=== PATIENT | male | born 1945 | race Caucasian/White ===

== ENCOUNTER 2016-06-15 10:43 | Inpatient (IN) ==
--- NOTE | 2016-06-15 11:39 | Emergency Department Note ---
Disposition Clinical Impression: CVA (cerebral vascular accident) Qualifiers: CVA mechanism: thrombosis Precerebral and cerebral artery: unspecified cerebral artery Qualified Code(s): I63.30 - Cerebral infarction due to thrombosis of unspecified cerebral artery Disposition: Admitted As Inpatient Condition: Serious Time of Disposition: 14:01 Extremity Problem HPI - General Chief complaint: ED Extremity Problem,Nontraumatic Stated complaint: L Arm Weakness Time Seen by Provider: 06/15/16 11:02 Source: patient, family Limitations: no limitations Nursing Notes Reviewed: Yes Vital Signs Reviewed: Yes - History of Present Illness HPI Narrative: Mr. Stevens is a 70 year old male that presents with L hand weakness that began yesterday afternoon. He states he first noticed the weakness while trying to write. Denies any pain, numbness, tingling. 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 Denies any issues with balance, speech. Notes more difficulty with fine motor movements such as writing and brushing his teeth. Denies any history of injury or overuse in L arm. Pertinent history of prostate cancer, bladder cancer, and colon cancer x 2; with colon resection 3 weeks ago. Noted to complete 14 day course of Lovenox two days ago. Pain Scale: 0 - Related Data Home Medications Medication Instructions Recorded Confirmed Atenolol [Tenormin] 25 mg PO DAILY 07/10/15 06/15/16 Esomeprazole Magnesium [Nexium] 40 mg PO Q48H 07/10/15 06/15/16 Oxybutynin Chloride [Ditropan Xl] 10 mg PO Q48H 07/10/15 06/15/16 Allergies Allergy/AdvReac Type Severity Reaction Status Date / Time Sulfa (Sulfonamide AdvReac Rash Verified 06/15/16 10:44 Antibiotics) All systems ED: reviewed and negative except as stated. Constitutional: Denies: fever Eyes: Denies: vision change ENT ED: Denies: hearing loss Cardiovascular: Denies: chest pain Respiratory: Denies: dyspnea Gastrointestinal: Denies: abdominal pain, melena, hematochezia Musculoskeletal: Denies: back pain, neck pain Neurological: Reports: weakness. Denies: numbness, paresthesias, confusion, abnormal gait Endocrine: Denies: fatigue Hematological/Lymphatic: Denies: easy bleeding, easy bruising Past Medical History - Past Medical History Attestation: Yes The following information was validated with the patient. Source: patient, obtained from family Medical history: Reports: cancer, diabetes, hypertension, osteoporosis, other Surgical history: Reports: other Psychiatric history: Reports: no psych history - Social History Smoking Status: Never smoker Smokeless Tobacco Status: No Alcohol use: Reports: none Drug use: Reports: none Physical Exam - General Limitations: no limitations General appearance: alert, in no apparent distress - Head Head exam: atraumatic, normocephalic - Eye Eye exam: Present: normal appearance, PERRL, EOMI. Absent: scleral icterus, conjunctival injection, nystagmus, miosis - ENT ENT exam: normal exam, mucous membranes moist - Neck Neck exam: Present: normal inspection, full ROM, trachea midline. Absent: tenderness, lymphadenopathy - Chest Chest inspection: Present: normal inspection, symmetric chest wall rise. Absent : tenderness - Respiratory Respiratory exam: Present: normal lung sounds bilaterally. Absent: respiratory distress, wheezes - Cardiovascular Cardiovascular exam: Present: regular rate, normal rhythm, +S1, +S2 - Abdominal Exam Abdominal exam: Present: soft, Non-Tender. Absent: distention, guarding, rebound, rigidity - Extremities Exam Extremities exam: Present: normal inspection, full ROM. Absent: tenderness, pedal edema - Expanded Upper Extremity Exam Hand exam: Present: normal inspection, other (LUE: symptoms not worsened with tapping of median or ulnar nerve. 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 Balance intact, normal gait, no pronator drift, no facial droop. finger to nose appropriate bilaterally. Patinet appears to be focuc on L hand while doing task, more concentration.). Absent: tenderness, swelling Neuromotor exam: Normal: wrist extension, thumb opposition, thumb IP flexion, thumb adduction, fingers 2-5 abduction Vascular exam: Normal: capillary refill, radial pulse - Neurological Exam Neurological exam: Present: alert, oriented X3, CN II-XII intact, normal gait, other (gross sensation of upper and lower extremity equal bilaterally.) - Psychiatric Psychiatric exam: Present: normal affect, normal mood - Skin Skin exam: Present: warm, dry, intact, normal color. Absent: rash, erythema, pallor Course - Consultations Consultation #1: Spoke to Dr. Pagan, admitting hospitalist, who accepted patient. Time: 14:50 Vital Signs Temperature 97.9 F 06/15/16 10:44 Pulse Rate 59 06/15/16 10:44 Respiratory Rate 16 06/15/16 10:44 Blood Pressure 181/89 06/15/16 10:44 O2 Sat by Pulse Oximetry 98 06/15/16 10:44 Temperature 98.0 F 06/15/16 20:08 Pulse Rate 67 06/15/16 20:30 Respiratory Rate 16 06/15/16 20:30 Blood Pressure 157/80 06/15/16 20:30 O2 Sat by Pulse Oximetry 93 06/15/16 20:08 Oxygen Delivery Oxygen Delivery Room Air Extremity Problem, Nontraumati - MDM Narrative Medical decision making narrative: No signes of peripheral nerve entrapment. Concern for central source of ataxia based on patient's history and exam. Will get an Brain MRI and concern consult to neurology. CVA diagnosed from MRI scan, discussed results with patient and recommendation for admission for further workup. Patient states agreement to admission at this time. - Lab Data Lab results reviewed: Yes I reviewed the patient's lab results. Result diagrams: 06/15/16 11:48 06/15/16 11:48 Lab Results 06/15/16 06/15/16 06/15/16 Range/Units 11:48 11:48 11:48 WBC 10.0 (4.3-11.1) K/mcL RBC 4.69 (4.19-5.50) M/mcL Hgb 13.3 (12.9-16.9) g/dL Hct 39.6 (37.5-50.1) % MCV 84.4 (83.0-100.0) fL MCH 28.4 (28.0-33.3) pg MCHC 33.6 (31.6-35.5) g/dL RDW 14.4 (11.5-14.5) % Plt Count 226 (140-400) K/mcL MPV 10.2 (9.4-12.4) fL Immature Gran % 0.4 (0-4) % Seg Neutrophils % 79.0 % Lymphocytes % 11.9 % Monocytes % 6.5 % Eosinophils % 1.8 % Basophils % 0.4 % Neutrophils # 7.9 (1.6-8.9) K/mcL Lymphocytes # 1.2 (0.6-4.6) K/mcL Monocytes # 0.7 (0.0-1.3) K/mcL Eosinophils # 0.2 (0.0-0.6) K/mcL Basophils # 0.0 (0.0-0.2) K/mcL Immature Plt Fraction 5.1 (1.1-6.1) % ESR 33 H (0-10) mm/hr Sodium 138 (136-145) mEq/L Potassium 4.2 (3.5-4.5) mEq/L Chloride 104 (98-109) mEq/L Carbon Dioxide 25 (19-29) mEq/L BUN 12 (8-26) mg/dL Creatinine 1.29 H (0.72-1.25) mg/dL Est GFR ( Amer) > 60 (> 60) Est GFR (Non-Af Amer) 55 L (> 60) BUN/Creatinine Ratio 9 (6-26) Glucose 173 H (70-99) mg/dL POC Glucose (58-89) Calculated Osmolality 290 (280-300) Calcium 9.4 (8.6-10.8) mg/dL 06/15/16 Range/Units 16:33 WBC (4.3-11.1) K/mcL RBC (4.19-5.50) M/mcL Hgb (12.9-16.9) g/dL Hct (37.5-50.1) % MCV (83.0-100.0) fL MCH (28.0-33.3) pg MCHC (31.6-35.5) g/dL RDW (11.5-14.5) % Plt Count (140-400) K/mcL MPV (9.4-12.4) fL Immature Gran % (0-4) % Seg Neutrophils % % Lymphocytes % % Monocytes % % Eosinophils % % Basophils % % Neutrophils # (1.6-8.9) K/mcL Lymphocytes # (0.6-4.6) K/mcL Monocytes # (0.0-1.3) K/mcL Eosinophils # (0.0-0.6) K/mcL Basophils # (0.0-0.2) K/mcL Immature Plt Fraction (1.1-6.1) % ESR (0-10) mm/hr Sodium (136-145) mEq/L Potassium (3.5-4.5) mEq/L Chloride (98-109) mEq/L Carbon Dioxide (19-29) mEq/L BUN (8-26) mg/dL Creatinine (0.72-1.25) mg/dL Est GFR ( Amer) (> 60) Est GFR (Non-Af Amer) (> 60) BUN/Creatinine Ratio (6-26) Glucose (70-99) mg/dL POC Glucose 117 H (58-89) Calculated Osmolality (280-300) Calcium (8.6-10.8) mg/dL - Radiology Data Radiology results reviewed: Yes I reviewed the patient's radiology results. Brain MRI 06/15/16 11:35 IMPRESSION: 1. There is a 6.7 mm acute infarct involving the posterior limb of the right internal capsule/periventricular white matter. 2. Cerebral atrophy. Chronic small vessel ischemic changes. D/ / 06/15/2016 13:44:25 Tammie Alejandre MD / Keisha Piña Interpreting Provider: Tammie Alejandre MD - EKG Data EKG attestation: Yes I reviewed and interpreted this EKG. EKG shows normal: sinus rhythm Rate: normal Rhythm: PVC's When compared to previous EKG there are: no significant changes Interpretation: no acute changes Attestation Statement - Attestation Attestation: I examined this patient and my medical decision-making was reviewed with the LAB SUPPORT TECHNICIAN/PA/Advanced Practice Nurse/Resident Physician. I agree with the documented findings, disposition and treatment plan as described except to the extent set forth below. Into the emergency department complaining of left arm weakness. He states it started yesterday. Denies any numbness or tingling in the arm. He does admit to riding with his elbow up on the edge of the windowsill in his car. 3. Recent admission for partial bowel resection. On examination he is awake and alert in no distress. There is no swelling or deformity to the arm. He has full range of motion of it. 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 No pain with tapping over the ulnar or median nerves. Some ataxia in that arm with finger-nose testing and alternating rapid movements. Plan. Basic labs EKG and MRI brain. MRI shows a small acute infarct off the internal capsule. Likely the cause of his symptoms. Patient will be admitted for stroke workup. Patient's contemplated contemplating transfer at this time. Agreeable to admission here. Except by hospitalist. No TPA secondary to onset of symptoms almost 24 hours ago. 30 minutes of critical care exclusive of separately billable procedures. NIH Stroke Scale - Level of Consciousness LOC: Alert - LOC Questions LOC Questions: Answers both correctly - LOC Commands LOC Commands: Performs both correctly - Best Gaze Best Gaze: Normal - Visual Visual: No visual loss - Facial Palsy Facial Palsy: Normal - Motor Arms Motor Arm-Left: No drift for 10 seconds Motor Arm-Right: No drift for 10 seconds - Motor Legs Motor Leg-Left: No drift for 5 seconds Motor Leg-Right: No drift for 5 seconds - Limb Ataxia Limb Ataxia: Present in ONE limb - Sensory Sensory: Normal - Best Language Best Language: No aphasia - Dysarthria Dysarthria: Normal - Extinction and Inattention Extinction and Inattention: Normal - NIHSS Total Score NIHSS Total Score: 1
[2016-06-15 11:54] LABS: Basophils % 0.4 %; Eosinophils # 0.2 K/mcL (0.0-0.6); Eosinophils % 1.8 %; Hematocrit 39.6 % (37.5-50.1); Hemoglobin 13.3 g/dL (12.9-16.9); Immature Granulocytes % 0.4 % (0-4); Immature Platelets 5.1 % (1.1-6.1); Lymphocytes # 1.2 K/mcL (0.6-4.6); Lymphocytes % 11.9 %; Mean Corpuscular HGB Conc 33.6 g/dL (31.6-35.5); Mean Corpuscular Hemoglobin 28.4 pg (28.0-33.3); Mean Corpuscular Volume 84.4 fL (83.0-100.0); Mean Platelet Volume 10.2 fL (9.4-12.4); Monocytes # 0.7 K/mcL (0.0-1.3); Monocytes % 6.5 %; Neutrophils # 7.9 K/mcL (1.6-8.9); Platelet Count 226 K/mcL (140-400); Red Blood Count 4.69 M/mcL (4.19-5.50); Red Cell Distribution Width 14.4 % (11.5-14.5)
[2016-06-15 12:05] LABS: BUN/Creatinine Ratio 9 (6-26); Blood Urea Nitrogen 12 mg/dL (8-26); Calcium 9.4 mg/dL (8.6-10.8); Carbon Dioxide 25 mEq/L (19-29); Chloride 104 mEq/L (98-109); Glucose 173 mg/dL (70-99); Osmolality,Calculated 290 (280-300); Potassium 4.2 mEq/L (3.5-4.5); Sodium 138 mEq/L (136-145); eGFR For African Americans > 60 (> 60); eGFR For Non-African Americans 55 (> 60)
[2016-06-15] MEDS ORDERED: Aspirin 81 MG TAB.CHEW PO STA (13:53)
[2016-06-15] MEDS ORDERED: Naloxone 0.4 MG/ML INJ IVP PRN (17:11)
[2016-06-15] MEDS ORDERED: Dextrose Gel 15 GM PO PRN ×2 (17:59)
[2016-06-15] MEDS ORDERED: *HR* Dextrose 50 % in Water (Syg) 50 ML SYRINGE IVP PRN (17:59)
[2016-06-15] MEDS ORDERED: D5% in Water 1,000 ML IVC PRN (17:59)
--- NOTE | 2016-06-15 18:05 | Internal Med History&Physical ---
<Fransisco Hart T - Last Filed: 06/15/16 18:46> Date of Encounter: 06/15/16 Internal Medicine - H&P: HPI History of present illness: Mr. Stevens is a 70 year old male Internal Medicine - H&P: Meds Atenolol [Tenormin] 25 mg PO DAILY 07/10/15 [History] Esomeprazole Magnesium [Nexium] 40 mg PO Q48H 07/10/15 [History] Oxybutynin Chloride [Ditropan Xl] 10 mg PO Q48H 07/10/15 [History] Allergies Sulfa (Sulfonamide Antibiotics) Adverse Reaction (Verified 06/15/16 10:44) Rash All Systems PM: A 10-system review of systems was performed and is negative for pertinent findings except as documented above in the HPI. - Constitutional Vitals: Temp Pulse Resp BP Pulse Ox 98.4 F 62 20 170/88 96 06/15/16 15:16 06/15/16 15:16 06/15/16 15:16 06/15/16 15:16 06/15/16 15:16 Internal Med - H&P Results - Labs CBC & Chem 7: 06/15/16 11:48 06/15/16 11:48 - Attending Attestation I have independently interviewed and examined this patient. I have reviewed the EMR extensively and discussed plan of care the resident/nurse practitioner. 70 Y/O M with PMH of HTN, DM-diet controlled, GERD, History of Multiple cancers including Colon cancer, bladder , colon CA with recent bowel resection , developed sudden difficulty writing with his left hand last night(he is left handed), he denies any other symptoms Physical exam unremarkable for neurologic deficits except subtle weakness of his left small muscles of the hand and fine rapidly resolving nystagmus. Labs and Imaging reviewed and noted for R acute thalamic CVA, EKG with PVCs, TAB with CR of 1.38, most recent creatinine on record here is 0.99. Assessment and Plan: Acute Ischemic CVA, minimal residual weakness of his left fingers, no other gross deficit, patient with multiple risk factors, Check ECHO, carotid Doppler , Continue ASA, Lipitor, check A1C, lipid panel, PT/OT consult, TAB vs progression of CKD, gentle hydration, check renal USS, check UA. Chronic medical problems are stable. 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 Brain MRI showed a 6.7mm acute infarct in the posterior limb of the right internal capsule/periventricular white matter. EKG showed SR with PVCs. Aspirin 325mg given. Aspirin daily Atorvastatin daily Lipid panel with morning labs Continuous media monitor Echocardiogram Carotid dopplers Consult to Neurology Consult to PT/OT Qualifiers: CVA mechanism: thrombosis Precerebral and cerebral artery: unspecified cerebral artery Qualified Code(s): I63.30 - Cerebral infarction due to thrombosis of unspecified cerebral artery (2) Type 2 diabetes mellitus Current visit: Yes Status: Acute Patient reports he is diet controlled Hgb A1c diabetic diet check blood sugars ACHS sliding scale correction dose ACHS hypoglycemic protocol Qualifiers: Diabetes mellitus complication status: without complication Diabetes mellitus 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 Will hydrate overnight, check UA and recheck chemistry in the morning. (4) Hypertension Current visit: Yes Status: Acute Continue home dose of amlodipine. Qualifiers: Hypertension type: essential hypertension Qualified Code(s): I10 - Essential (primary) hypertension (5) DVT prophylaxis Current visit: Yes Status: Acute encourage ambulation anti-embolic stockings Lovenox 40mg SQ daily Internal Medicine - H&P: HPI Chief complaint: left hand weakness Admitted From: Emergency Dept Plans for Post Hospital Care: Home History of present illness: Mr. Stevens is a 70 year old male with hypertension, diet-controlled diabetes, acid reflux, history of colon cancer, bladder cancer and prostate cancer, presented to the emergency department today with complaints of left hand weakness which started yesterday afternoon. Patient reports he notices that his fingers do not have the dexterity or control that he previously had an first noted it when he was writing. Thought it would go away but when he woke this morning and continued. He denies any numbness or tingling, lightheadedness , dizziness, disturbed gait, he denies any chest pain, palpitations, shortness of breath. Evaluation in the emergency department included an MRI of his brain which showed a 6.7 mm acute infarct in the posterior limb of the right internal capsule periventricular white matter, as well as cerebral atrophy and chronic small vessel ischemic changes. His EKG showed sinus rhythm with PVCs. Labs revealed acute kidney injury with creatinine of 1.29. Hyperglycemia with glucose of 173. ESR was elevated as well to 33. Patient reports 3 weeks ago he had a bowel resection for colon cancer, which was stage I and no further treatment planned. He completed postsurgical Lovenox treatment on . On exam, patient is alert and oriented, in no acute distress. He has equal strength bilaterally, cranial nerves are intact, no pronator drift. He does have horizontal nystagmus. Lungs are clear to auscultation, heart has regular rate and rhythm. Past Med Surg Social Fam HX - Past Medical History Medical history: cancer, diabetes, hypertension, osteoporosis, other Psychiatric history: no psych history - Past Surgical History Surgical History: other - Social History Smoking Status: Never smoker Smokeless Tobacco Status: No Alcohol use: none Drug use: none - Family History Mother Living Status: Age at : 79 Hx Family Cancer: Yes Hx Family Endocrine Disorder: Yes (diabetes) Father Living Status: Still Living Hx Family GI Disorders: Yes All Systems PM: A 10-system review of systems was performed and is negative for pertinent findings except as documented above in the HPI. - Constitutional Constitutional: no chills, no fever(s), no night sweats - EENT Eyes: no change in vision, no discharge, no pain, no photophobia Ears: no ear discharge, no ear pain, no tinnitus Nose, mouth and throat: no dysphagia, no nasal discharge, no neck pain, no sore throat - Cardiovascular Cardiovascular ROS IM: no chest pain, no diaphoresis, no dyspnea, no lightheadedness, no palpitations, no syncope - Respiratory Respiratory: no cough, no dyspnea, no wheezing, no excessive phlegm production - Gastrointestinal Gastrointestinal: no abdominal pain, no diarrhea, no hematemesis, no hematochezia, no melena, no nausea, no vomiting - Musculoskeletal Musculoskeletal ROS IM: no numbness, no tingling - Integumentary Integumentary IM: no rash, no unusual bruising - Neurological Neurological ROS: focal weakness (left hand/fingers), no confusion, no convulsions, no numbness, no tingling, no tremor(s) - Hematologic/Lymphatic Hematologic/Lymphatic: no easy bruising - Constitutional Vitals: Temp Pulse Resp BP Pulse Ox 98.4 F 62 20 170/88 96 06/15/16 15:16 06/15/16 15:16 06/15/16 15:16 06/15/16 15:16 06/15/16 15:16 General appearance: Present: A&O X 3, pleasant, no acute distress - Head Head exam: Present: atraumatic, normocephalic - Eye Eye exam: Present: nystagmus, PERRL, conjuntiva pink, sclera anicteric Pupils: Present: PERRL - Neck Neck exam general surgery: Present: supple, trachea midline. Absent: lymphadenopathy - Respiratory Respiratory exam: Present: CTAB. Absent: accessory muscle use, rales, rhonchi, wheezes - Cardiovascular Cardiovascular exam: Present: RRR, +S1, +S2. Absent: diastolic murmur, gallop, rubs, systolic murmur - GI/Abdominal GI/Abdominal exam: Present: normal bowel sounds, soft, no peritoneal signs. Absent: distended, tenderness - Extremities Exam Extremities exam: Present: warm, radial pulses palpable and symetrical. Absent : calf tenderness, cyanotic, pedal edema - Neurological Exam Neurological exam: Present: CN II-XII intact, oriented X3, no focal deficits. Absent: pronater drift, facial droop, speech deficit - Expanded Neurological Exam Cranial Nerves: EOM's intact PM: Normal, nystagmus PM: Abnormal Left, tongue deviation PM: Normal Cerebellar function: finger to nose: Abnormal Left Sensory exam: LE 2 point discrimination: Normal, UE 2 point discrimination: Normal Neuro motor strength exam: LUE: 5, RUE: 5, LLE: 5, RLE: 5 - Skin Skin exam: Present: dry, intact Internal Med - H&P Results - Labs CBC & Chem 7: 06/15/16 11:48 06/15/16 11:48 Labs: All Lab Results (24 Hours) 06/15/16 06/15/16 06/15/16 Range/Units 11:48 11:48 11:48 WBC 10.0 (4.3-11.1) K/mcL RBC 4.69 (4.19-5.50) M/mcL Hgb 13.3 (12.9-16.9) g/dL Hct 39.6 (37.5-50.1) % MCV 84.4 (83.0-100.0) fL MCH 28.4 (28.0-33.3) pg MCHC 33.6 (31.6-35.5) g/dL RDW 14.4 (11.5-14.5) % Plt Count 226 (140-400) K/mcL MPV 10.2 (9.4-12.4) fL Immature Gran % 0.4 (0-4) % Seg Neutrophils % 79.0 % Lymphocytes % 11.9 % Monocytes % 6.5 % Eosinophils % 1.8 % Basophils % 0.4 % Neutrophils # 7.9 (1.6-8.9) K/mcL Lymphocytes # 1.2 (0.6-4.6) K/mcL Monocytes # 0.7 (0.0-1.3) K/mcL Eosinophils # 0.2 (0.0-0.6) K/mcL Basophils # 0.0 (0.0-0.2) K/mcL Immature Plt Fraction 5.1 (1.1-6.1) % ESR 33 H (0-10) mm/hr Sodium 138 (136-145) mEq/L Potassium 4.2 (3.5-4.5) mEq/L Chloride 104 (98-109) mEq/L Carbon Dioxide 25 (19-29) mEq/L BUN 12 (8-26) mg/dL Creatinine 1.29 H (0.72-1.25) mg/dL Est GFR ( Amer) > 60 (> 60) Est GFR (Non-Af Amer) 55 L (> 60) BUN/Creatinine Ratio 9 (6-26) Glucose 173 H (70-99) mg/dL POC Glucose (58-89) Calculated Osmolality 290 (280-300) Calcium 9.4 (8.6-10.8) mg/dL 06/15/16 Range/Units 16:33 WBC (4.3-11.1) K/mcL RBC (4.19-5.50) M/mcL Hgb (12.9-16.9) g/dL Hct (37.5-50.1) % MCV (83.0-100.0) fL MCH (28.0-33.3) pg MCHC (31.6-35.5) g/dL RDW (11.5-14.5) % Plt Count (140-400) K/mcL MPV (9.4-12.4) fL Immature Gran % (0-4) % Seg Neutrophils % % Lymphocytes % % Monocytes % % Eosinophils % % Basophils % % Neutrophils # (1.6-8.9) K/mcL Lymphocytes # (0.6-4.6) K/mcL Monocytes # (0.0-1.3) K/mcL Eosinophils # (0.0-0.6) K/mcL Basophils # (0.0-0.2) K/mcL Immature Plt Fraction (1.1-6.1) % ESR (0-10) mm/hr Sodium (136-145) mEq/L Potassium (3.5-4.5) mEq/L Chloride (98-109) mEq/L Carbon Dioxide (19-29) mEq/L BUN (8-26) mg/dL Creatinine (0.72-1.25) mg/dL Est GFR ( Amer) (> 60) Est GFR (Non-Af Amer) (> 60) BUN/Creatinine Ratio (6-26) Glucose (70-99) mg/dL POC Glucose 117 H (58-89) Calculated Osmolality (280-300) Calcium (8.6-10.8) mg/dL - Diagnostic Studies MRI - head Additional comments: Brain MRI 06/15/16 11:35 IMPRESSION: 1. There is a 6.7 mm acute infarct involving the posterior limb of the right internal capsule/periventricular white matter. 2. Cerebral atrophy. Chronic small vessel ischemic changes. D/ /15/2016 13:44:25 Tammie Alejandre MD / Keisha Piña Interpreting Provider: Tammie Alejandre MD
[2016-06-15] MEDS: 0.9 % Sodium Chloride 1,000 ML IVC SCH (20:45)
[2016-06-15] MEDS ORDERED: Insulin LISPRO 300 UNITS/3 ML VIAL SQ SCH (21:00)
[2016-06-16] MEDS: 0.9 % Sodium Chloride 1,000 ML IVC SCH (06:36)
[2016-06-16] MEDS ORDERED: *HR* Enoxaparin 40 MG/0.4 ML SYRINGE SQ SCH (07:00)
[2016-06-16] MEDS: Insulin LISPRO 300 UNITS/3 ML VIAL SQ SCH ×3 (08:36→17:53)
[2016-06-16] MEDS ORDERED: Aspirin 81 MG TAB.CHEW PO SCH (09:00)
[2016-06-16] MEDS ORDERED: Aspirin 325 MG TABLET PO SCH (09:00)
[2016-06-16 09:46] LABS: Basophils # 0.1 K/mcL (0.0-0.2); Basophils % 0.7 %; Eosinophils # 0.3 K/mcL (0.0-0.6); Eosinophils % 4.2 %; Hematocrit 40.3 % (37.5-50.1); Hemoglobin 13.7 g/dL (12.9-16.9); Immature Granulocytes % 0.4 % (0-4); Lymphocytes % 27.5 %; Mean Corpuscular Hemoglobin 28.6 pg (28.0-33.3); Mean Corpuscular Volume 84.1 fL (83.0-100.0); Mean Platelet Volume 11.2 fL (9.4-12.4); Monocytes # 0.7 K/mcL (0.0-1.3); Neutrophils # 4.3 K/mcL (1.6-8.9); Platelet Count 190 K/mcL (140-400); Red Blood Count 4.79 M/mcL (4.19-5.50); Red Cell Distribution Width 14.6 % (11.5-14.5); Segmented Neutrophils % 58.2 %
[2016-06-16 10:03] LABS: BUN/Creatinine Ratio 10 (6-26); Blood Urea Nitrogen 11 mg/dL (8-26); Carbon Dioxide 21 mEq/L (19-29); Chloride 106 mEq/L (98-109); Glucose 136 mg/dL (70-99); Osmolality,Calculated 287 (280-300); Sodium 138 mEq/L (136-145); Triglycerides 77 mg/dL (< 150); eGFR For African Americans > 60 (> 60); eGFR For Non-African Americans > 60 (> 60)
[2016-06-16 10:04] LABS: Chol/HDL Ratio 3.3 (0-4.9); Cholesterol 136 mg/dL (< 200); HDL Cholesterol 41 mg/dL (40-59); LDL Cholesterol,Calculated 80 mg/dL (0-99)
[2016-06-16 12:44] LABS: Bilirubin,Urine Negative (Negative); Blood,Urine Negative (Negative); Clarity,Urine Clear (Clear); Color,Urine Yellow (Yellow); Glucose,Urine (UA) Normal (Normal); Ketones,Urine Negative (Negative); Leukocyte Esterase,Urine Negative (Negative); Nitrite,Urine Negative (Negative); PH,Urine 6.5 pH Units (5.0-8.0); Protein,Urine Trace mg/dL (Neg-Trace); Specific Gravity,Urine 1.014 (1.010-1.025); Urobilinogen,Urine Normal (Normal)
[2016-06-16 12:47] LABS: Bacteria,Urine None Seen per hpf (None-Few); Hyaline Casts,Urine None Seen per lpf (None-Few); RBC,Urine 0-3 per hpf (0-3); Squamous Epithelial Cell,Urine Moderate per lpf (None-Few); WBC,Urine 0-3 per hpf (0-3)
--- NOTE | 2016-06-16 13:52 | Neurology - Consult Note ---
Date of Encounter: 06/16/16 Time of Encounter: 13:50 Assessment and Plan (1) CVA (cerebral vascular accident) Current Visit: Yes Status: Acute This patient has sustained what is more than likely a lacunar infarction involving the posterior limb of the right internal capsule. Certainly he has risk factors including hypertension, his blood pressure was 181/89 the time of admission, as well as diabetes mellitus which is not well controlled. He did receive an aspirin at the time of admission. Certainly recommend maintaining him on statins, management of his stroke risk factors include normalizing his blood pressure, and aggressive management of his glycemic profile. I do not feel that he needs PT or OT at this time. I would however like to get an MRI scan of the brain with contrast and also rule out possibility of any brain metastases. He may be discharged if the MRI scan is negative for this. He should maintain aspirin 325 mg daily. Carotid Doppler revealed nonstenotic plaquing as mentioned earlier. Based on the location of the infarct embolic phenomenon is not likely. The documentation in the history of HPI and plan were at least partially created by [email or web address] voice recognition technology by Dr. Robison. Errors in grammar, wording or other phrases may exist. If errors are found after the documentation signed, they will be addressed individually in the addendum section of this document when appropriate. Qualifiers: CVA mechanism: thrombosis Precerebral and cerebral artery: unspecified cerebral artery Qualified Code(s): I63.30 - Cerebral infarction due to thrombosis of unspecified cerebral artery History of Present Illness HPI: Mr. Stevens is a 70 year old male seen for neurologic evaluation secondary to acute right lacunar infarct. Apparently in the day of admission he presented with difficulty writing as he is left handed. He denied any other symptoms at the time. Denied headache denied any speech difficulties denied any numbness tingling or weakness of the left face arms or legs. However upon admission he did have a blood pressure 181/89, and his glucose is elevated at 173. Since admission he has had carotid duplex Doppler study which revealed nonstenotic plaquing. MRI scan of the brain revealed an acute internal capsule infarct in the posterior limb of the right internal capsule. This gentleman does have a history of previous colon cancer and bladder cancer. There is also history of prostate cancer. There is a question as to whether or not he could maybe have metastatic lesions to the brain. Past Med Surg Social Fam HX - Past Medical History Medical history: cancer, diabetes, hypertension, osteoporosis, other Psychiatric history: no psych history - Past Surgical History Surgical History: other - Social History Smoking Status: Never smoker Smokeless Tobacco Status: No Alcohol use: none Drug use: none - Family History Mother Living Status: Age at : 79 Hx Family Cancer: Yes Hx Family Endocrine Disorder: Yes (diabetes) Father Living Status: Still Living Hx Family GI Disorders: Yes Medications and Allergies Atenolol [Tenormin] 25 mg PO DAILY 07/10/15 [History] Esomeprazole Magnesium [Nexium] 40 mg PO Q48H 07/10/15 [History] Oxybutynin Chloride [Ditropan Xl] 10 mg PO Q48H 07/10/15 [History] Allergies Sulfa (Sulfonamide Antibiotics) Adverse Reaction (Verified 06/15/16 10:44) Rash All Systems: A 10-system review of systems was performed and is negative for pertinent findings except as documented above in the HPI. Review of Systems: A 10 point review of systems is consistent with the history of present illness and is otherwise negative. Physical Examination - Vital Signs Vital Signs: Initial Vital Signs Temp Pulse Resp BP Pulse Ox 97.9 F 59 16 181/89 98 06/15/16 10:44 06/15/16 10:44 06/15/16 10:44 06/15/16 10:44 06/15/16 10:44 - Neurologic Motor examination - right side: 5/5: deltoids, biceps, triceps, wrist flexion, wrist extension, clinical product specialist, hip flexors, tibialis Anterior, quadriceps, toe extension (EHL), plantarflexion Motor examination - left side: 4/5: triceps, clinical product specialist, 5/5: deltoids, biceps, quadriceps, tibialis Anterior, toe extension (EHL), plantarflexion Detailed sensory examination: intact Reflex and gait examination: intact Reflexes: Biceps: 1+, Triceps: 1+, Brachioradialis: 1+, Patella: 1+, Achilles: 0 Mental Status Examination: awake, alert, oriented to person, oriented to place, oriented to time, follows commands appropriately, answers questions appropriately, no agnosia, no aphasia, no aproxia Cranial nerve examination: PERRL, EOMI, visual montoya intact, corneal reflexes brisk symmetrically, sensory to face intact, mastication intact, no facial asymmetry is present, no dysarthria, hearing is intact symmetrically, soft palate elevates bilaterally upon phonation, gag reflex intact, flexes SCM and trapezius muscles symmetrically with full power, tongue protrudes midline, no atrophy or facial fasiculations present Cerebellar examination: no dysmetria, performs finger to nose and heel to gillette symmetrically without ataxia, no gait ataxia, no truncal ataxia, no difficulty with rapid alternating movements Results - Laboratory Findings CBC and BMP: 06/16/16 08:13 06/16/16 08:13 Abnormal lab findings: Abnormal lab results RDW 14.6 % (11.5-14.5) H 06/16/16 08:13 ESR 33 mm/hr (0-10) H 06/15/16 11:48 Glucose 136 mg/dL (70-99) H 06/16/16 08:13 POC Glucose 117 (58-89) H 06/15/16 20:15 Hemoglobin A1c 7.0 % (-5.6) H 06/15/16 18:30 Ur Squamous Epith Cells Moderate per lpf (None-Few) H 06/16/16 11:45 Consult Discharge Plan - Plan Referrals: Kervin James Jr, MD [Primary Care Provider] -
--- NOTE | 2016-06-16 17:23 | ECHO - Doppler Report ---
Echo with Saline Contrast Name: Reza Stevens Date of Study: 06/16/2016 Date: 1945 Ht: 70.0 in Medical Record#: [id number] Age: 70 Wt: 210.0 lb Gender: Male BSA: 2.13 Order #: [id number] Location: [facility] Room #: 2NE28 Reading Physician: Joe Clark DO, BRITTANY, GUILLERMINA SMITH Security Infrastructure Engineer: Lula Ramos RDCS Ordering Physician: Henna Mccormick DO Primary Physician: Kervin James MD Indications: Cerebrovascular Accident Impressions: LVEF 65%. Normal LV chamber size and function. Mild concentric left ventricular hypertrophy. Moderate left ventricular diastolic dysfunction. Normal right ventricular structure and function. No significant valvular dysfunction. Mild pulmonary hypertension. No evidence of PFO with agitated saline contrast. Left Ventricular Wall Motion: Rest Echo Findings All wall segments showed normal motion. Findings: Study Quality * Technically adequate exam. ECG Findings * Normal sinus rhythm. Left Ventricle * LVEF 65%. * Normal LV chamber size and function. * Mild concentric left ventricular hypertrophy. * Moderate left ventricular diastolic dysfunction. Right Ventricle * Normal right ventricular structure and function. Left Atrium * Mild to moderately dilated left atrium. Right Atrium * Mildly dilated right atrium. Interatrial Septum * No evidence of PFO with agitated saline contrast. Aortic Valve * Trileaflet aortic valve with normal function. * No aortic regurgitation. * No aortic stenosis. Mitral Valve * Normal mitral valve structure and function. * No mitral stenosis. * No mitral regurgitation. Tricuspid Valve * Normal tricuspid valve structure and function. * Trace tricuspid regurgitation. * Mild pulmonary hypertension. Pulmonic Valve * Normal pulmonic valve structure and function. * No pulmonic regurgitation. Aorta * Normally sized aortic root. Pericardium * The pericardium appears normal. IVC * Normal IVC dimensions and inspiratory collapse. Pulmonary Artery * Normal visualized portions of the main pulmonary artery. History Hypertension Diabetes Family History of CAD Contrast: Agitated saline 20 ml. Measurements: BP: 176/ 93 2D Normal Values RVIDd: 3.00 cm <2.7 cm IVSd: 1.10 cm 0.6 - 1.0 cm LVIDd: 4.30 cm 3.7 - 5.6 cm LVPWd: 1.10 cm 0.6 - 1.1 cm LVIDs: 2.50 cm 1.5 - 3.6 cm AO: 3.10 cm < 4.0 cm LA: 3.90 cm 2.0 - 4.0cm %FS: 41.90 cm >25 % LVOT Diam: 2.10 cm LA volume: 67 Mitral Valve Peak E:1.05 m/sec Peak A:.69 m/sec E/A Ratio:1.5 Peak E' Lat Devante:11.3 cm/s Peak E' Med Devante:7.41 cm/s E/E' Lat Ratio:9.3 E/E' Med Ratio:14.2 Tricuspid Valve TV Regurg Peak Grad: 32.00mmHg TV Regurg Peak Devante: 2.82m/sec Updated by Joe Clark DO, BRITTANY, LUIS, GUILLERMINA on 06/16/2016 5:15:50 PM electronically signed on 06/16/2016 5:16:28 PM with status of Final Wall Motion Ledezma: 1=Normal, 2=Hypokinesis, 3=Akinesis, 4=Dyskinesis, 5=Aneurysmal, 6=Hyperkinetic, X=Not Visualized (Blank)=Missing
--- NOTE | 2016-06-16 17:37 | Discharge Summary ---
Date of Encounter: 06/24/16 Time of Encounter: 17:33 - Discharge Diagnosis (1) CVA (cerebral vascular accident) Priority: Primary Status: Acute Qualifiers: CVA mechanism: thrombosis Precerebral and cerebral artery: unspecified cerebral artery Qualified Code(s): I63.30 - Cerebral infarction due to thrombosis of unspecified cerebral artery (2) Type 2 diabetes mellitus Priority: Secondary Status: Acute Qualifiers: Diabetes mellitus complication status: without complication Diabetes mellitus terminal operator insulin use: without terminal operator use Qualified Code(s): E11.9 - Type 2 diabetes mellitus without complications (3) Hypertension Priority: Secondary Status: Acute Qualifiers: Hypertension type: essential hypertension Qualified Code(s): I10 - Essential (primary) hypertension (4) Bladder cancer Priority: Secondary Status: Chronic Qualifiers: Bladder location: lateral wall Qualified Code(s): C67.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 Atorvastatin [Lipitor] 20 mg PO HS #30 tablet Lisinopril 2.5 mg PO QDPC #30 tablet Metformin [Glucophage] 500 mg PO BIDWM #60 tablet Home Medications: Atenolol [Tenormin] 25 mg PO DAILY 07/10/15 [History] Esomeprazole Magnesium [Nexium] 40 mg PO Q48H 07/10/15 [History] Oxybutynin Chloride [Ditropan Xl] 10 mg PO Q48H 07/10/15 [History] Aspirin Enteric Coated [Aspirin EC] 81 mg PO DAILY #30 tablet. 06/16/16 [Rx] Atorvastatin [Lipitor] 20 mg PO HS #30 tablet 06/16/16 [Rx] Lisinopril 2.5 mg PO QDPC #30 tablet 06/16/16 [Rx] Metformin [Glucophage] 500 mg PO BIDWM #60 tablet 06/16/16 [Rx] Allergies/Adverse Reactions: Allergies Sulfa (Sulfonamide Antibiotics) Adverse Reaction (Verified 06/15/16 10:44) Rash Procedures/tests Complete & Pending: Procedures Performed prior 72 hours Category Date Time Status MR head/brain w con [MR] Stat MRI 06/16/16 13:56 Draft Date of admission: 06/15/16 19:16 Primary care physician: Kervin James Jr, MD Discharging clinician: Joshua Randolph - Patient Status Disposition: Home, Self-Care Condition: Serious Functional capacity at discharge: independent ambulation Overall status at discharge: patient is progressing back to baseline - Discharge Instructions Follow Up With: Kervin James Jr, MD [Primary Care Provider] - Eleazar Robison DO [Partnered Physician] - - Diet and Activity Activity: increase activity as tolerated Diet: diabetic diet Interval History: Mr. Stevens is a 70 year old male with hypertension, diet-controlled diabetes, acid reflux, history of colon cancer, bladder cancer and prostate cancer, presented to the emergency department today with complaints of left hand weakness which started yesterday afternoon. Patient reports he notices that his fingers do not have the dexterity or control that he previously had an first noted it when he was writing. Thought it would go away but when he woke this morning and continued. He denies any numbness or tingling, lightheadedness , dizziness, disturbed gait, he denies any chest pain, palpitations, shortness of breath. Evaluation in the emergency department included an MRI of his brain which showed a 6.7 mm acute infarct in the posterior limb of the right internal capsule periventricular white matter, as well as cerebral atrophy and chronic small vessel ischemic changes. His EKG showed sinus rhythm with PVCs. Labs revealed acute kidney injury with creatinine of 1.29. Hyperglycemia with glucose of 173. ESR was elevated as well to 33. Patient reports 3 weeks ago he had a bowel resection for colon cancer, which was stage I and no further treatment planned. He completed postsurgical Lovenox treatment on . On exam, patient is alert and oriented, in no acute distress. He has equal strength bilaterally, cranial nerves are intact, no pronator drift. Hospital course: patient was hospitlaized. seen by neurology recommended MR with contrast to rule out metastasis. MRI head with contrast was negative US carotid : non stenotic plaque. ECHO : EF : 65%, No RWMA plan Home today started on ASA/Statin New diagnosed DM : Metformin and Lisinopril effects and side effects discussed with patient of new meds follow up with PCP 1-2 weeks Follow up with Neurology 1- 2weeks He needs oncology as outpatient as he might have P53 deficiency. all questions answered. - Time Spent with Patient Total time spent providing and/or coordinating discharge services: - Constitutional Vitals: Temp Pulse Resp BP Pulse Ox 97.7 F 63 16 167/92 97 06/16/16 16:13 06/16/16 16:13 06/16/16 16:13 06/16/16 16:13 06/16/16 16:13 General appearance: Present: A&O X 3, pleasant, no acute distress - Head Head exam: Present: atraumatic, normocephalic - Eye Eye exam: Present: PERRL, conjuntiva pink, sclera anicteric Pupils: Present: PERRL - Neck Neck exam general surgery: Present: supple, trachea midline. Absent: lymphadenopathy - Respiratory Respiratory exam: Present: CTAB. Absent: accessory muscle use, rales, rhonchi, wheezes - Cardiovascular Cardiovascular exam: Present: RRR, +S1, +S2. Absent: diastolic murmur, gallop, rubs, systolic murmur - GI/Abdominal GI/Abdominal exam: Present: normal bowel sounds, soft, no peritoneal signs. Absent: distended, tenderness - Extremities Exam Extremities exam: Present: warm, radial pulses palpable and symetrical. Absent : calf tenderness, cyanotic, pedal edema - Neurological Exam Neurological exam: Present: CN II-XII intact, oriented X3, no focal deficits. Absent: pronater drift, facial droop, speech deficit - Skin Skin exam: Present: dry, intact
--- NOTE | 2016-06-17 09:09 | Electrocardiograph Report ---
[place] [address] Test Date: 2016-06-15 Pat Name: Reza Stevens Department: 105 Room: 2NE28 Gender: M Refrigerator Tester: PACO : 1945 Requested By: Henna See Order Number: [id number] Reading MD: Lul Marks MD Measurements Intervals [place] Rate: 59 P: 49 IA: 127 QRS: 2 QRSD: 105 T: 7 QT: 398 QTc: 397 Interpretive Statements SINUS BRADYCARDIA WITH OCCASIONAL SUPRAVENTRICULAR PREMATURE COMPLEXES Electronically Signed On 06-17-2016 9:07:47 EDT by Lul Marks MD
--- NOTE | 2016-06-17 12:40 | Carotid Imaging Report ---
Carotid Duplex Patient Name:Reza Stevens Order Number:[id number] Procedure Date:06/16/2016 Date:1945ge:70 yrs Gender:Male Lt BP:176 / 93 mmHg Rt.BP:176 / 93 mmHgHeart Rate: Location:[facility] Room #: 2NE28 Day Habilitation Supervisor:Lula Ramos RDCS Referring MD:Henna Mccormick DO boot liner maker:Kervin James MD Reading MD:Shaji Siegel MD , FACS Primary Indications:Cerebral vascular accident Risk Factors Yes/No Hypertension Yes Diabetes Yes Hypercholesterolemia No Smoking Current No Hx of CVA Yes Previous Vascular Surgery No Impressions: Findings: Bilateral carotid system have nonstenotic plaque. Findings Carotid Duplex: Right: The right proximal common carotid artery has a PSV of 93 cm/s and a EDV of 15 cm/s. The right mid common carotid artery has a PSV of 76 cm/s and a EDV of 13 cm/s. The right distal common carotid artery has a PSV of 86 cm/s and a EDV of 13 cm/s. There is nonstenotic plaque in the right bifurcation with a PSV of 68 cm/s and a EDV of 14 cm/s. There is irregular heterogeneous plaque. The right proximal internal carotid artery has a PSV of 86 cm/s and a EDV of 23 cm/s. There is nonstenotic plaque in the right mid internal carotid artery with a PSV of 104 cm/s and a EDV of 29 cm/s. There is irregular heterogeneous plaque. There is nonstenotic plaque in the right distal internal carotid artery with a PSV of 93 cm/s and a EDV of 23 cm/s. There is irregular heterogeneous plaque. There is nonstenotic plaque in the right eca with a PSV of 83 cm/s and a EDV of 6 cm/s. There is irregular heterogeneous plaque. The right vertebral artery has a PSV of 57 cm/s and a EDV of 12 cm/s. VERY HIGH BIFUCATION WITH DIVING ICA VESSEL. Left: The left proximal common carotid artery has a PSV of 118 cm/s and a EDV of 23 cm/s. The left mid common carotid artery has a PSV of 112 cm/s and a EDV of 17 cm/s. The left distal common carotid artery has a PSV of 106 cm/s and a EDV of 21 cm/s. There is nonstenotic plaque in the left bifurcation with a PSV of 99 cm/s and a EDV of 17 cm/s. There is irregular heterogeneous plaque. The left proximal internal carotid artery has a PSV of 85 cm/s and a EDV of 22 cm/s. The left mid internal carotid artery has a PSV of 89 cm/s and a EDV of 25 cm/s. There is nonstenotic plaque in the left distal internal carotid artery with a PSV of 106 cm/s and a EDV of 24 cm/s. There is irregular heterogeneous plaque. There is nonstenotic plaque in the left eca with a PSV of 154 cm/s and a EDV of 11 cm/s. There is irregular heterogeneous plaque. The left vertebral artery has a PSV of 68 cm/s and a EDV of 10 cm/s. VERY HIGH BIFURCATION WITH DIVING ICA VESSEL. Prior Study: No prior study available for comparison. Carotid Results Right PSV EDV Assessment Proximal CCA 93 15 Normal Mid CCA 76 13 Normal Distal CCA 86 13 Normal Bifurcation 68 14 Non Stenotic Plaque Proximal ICA 86 23 Normal Mid ICA 104 29 Non Stenotic Plaque Distal ICA 93 23 Non Stenotic Plaque ECA 83 6 Non Stenotic Plaque Vertebral Artery 57 12 Normal Left PSV EDV Assessment Proximal CCA 118 23 Normal Mid CCA 112 17 Normal Distal CCA 106 21 Normal Bifurcation 99 17 Non Stenotic Plaque Proximal ICA 85 22 Normal Mid ICA 89 25 Normal Distal ICA 106 24 Non Stenotic Plaque ECA 154 11 Non Stenotic Plaque Vertebral Artery 68 10 Normal Ratio's Right ICA/CCA Ratio: 1.10 ICA/CCA Values: 104/93 Left ICA/CCA Ratio: 0.90 ICA/CCA Values: 106/118 Updated by Shaji Siegel MD, FACS on 06/17/2016 12:35:33 PM Shaji Siegel MD electronically signed on 06/17/2016 12:36:04 PM with status of Final
[2016-06-18 10:45] VITALS: BP 167/92
== END 2016-06-16 18:25 | disposition home or self-care (01) | DRG 65 ==
LOC: EMEROO 10:43 → 2NENU 10:43
PROVIDERS: ADMIT Internal Medicine; ATTEND Internal Medicine

== ENCOUNTER 2019-02-08 11:53 | Inpatient (IN) ==
[2019-02-08] MEDS ORDERED: *HR* Metoprolol 5 MG/5 ML VIAL IVP ONE (12:54)
[2019-02-08 13:11] LABS: Basophils % 0.5 %; Eosinophils # 0.1 K/mcL (0.0-0.6); Eosinophils % 1.4 %; Hematocrit 33.6 % (37.5-50.1); Hemoglobin 10.9 g/dL (12.9-16.9); Immature Granulocytes % 0.3 % (0-4); Lymphocytes # 1.6 K/mcL (0.6-4.6); Lymphocytes % 20.8 %; Mean Corpuscular HGB Conc 32.4 g/dL (31.6-35.5); Mean Corpuscular Hemoglobin 27.9 pg (28.0-33.3); Mean Corpuscular Volume 85.9 fL (83.0-100.0); Mean Platelet Volume 10.1 fL (9.4-12.4); Monocytes # 0.6 K/mcL (0.0-1.3); Neutrophils # 5.4 K/mcL (1.6-8.9); Platelet Count 185 K/mcL (140-400); Red Blood Count 3.91 M/mcL (4.19-5.50); White Blood Count 7.8 K/mcL (4.3-11.1)
[2019-02-08 13:19] LABS: INR 1.1; Prothrombin Time 12.5 Seconds (9.4-12.1)
[2019-02-08 13:22] LABS: Activated Partial Thrombo Time 33.7 Seconds (26.0-36.0)
[2019-02-08 13:27] LABS: BUN/Creatinine Ratio 16 (6-26); Blood Urea Nitrogen 19 mg/dL (8-23); Carbon Dioxide 22 mEq/L (23-29); Chloride 104 mEq/L (98-107); Glucose 125 mg/dL (70-105); Osmolality,Calculated 288 (280-300); Potassium 4.2 mEq/L (3.5-5.1); Sodium 137 mEq/L (136-145); eGFR For African Americans > 60 (> 60); eGFR For Non-African Americans > 60 (> 60)
[2019-02-08 13:29] LABS: Magnesium 1.7 mg/dL (1.6-2.6)
[2019-02-08 13:30] LABS: Troponin I < 0.03 ng/mL (< 0.04)
[2019-02-08] MEDS ORDERED: Ondansetron 4 MG/2 ML VIAL IVP PRN (15:42)
[2019-02-08] MEDS ORDERED: Mag Hydrox/Al Hydrox/Simeth 30 ML UDC PO PRN (15:42)
[2019-02-08] MEDS ORDERED: Naloxone 0.4 MG/ML INJ IVP PRN (15:42)
[2019-02-08] MEDS ORDERED: MOM Conc 10 ML UD.LIQ PO PRN (15:42)
[2019-02-08] MEDS ORDERED: Acetaminophen 325 MG TABLET PO PRN (15:42)
[2019-02-08] MEDS ORDERED: *HR* Promethazine 25 MG/ML VIAL IVP PRN (15:42)
[2019-02-08] MEDS ORDERED: *HR* Dextrose 50 % in Water (Syg) 50 ML SYRINGE IVP PRN (15:45)
[2019-02-08] MEDS ORDERED: Dextrose Gel 15 GM/37.5 ML TUBE PO PRN ×2 (15:45)
[2019-02-08] MEDS ORDERED: D5% in Water 1,000 ML IVC PRN (15:45)
[2019-02-08] MEDS ORDERED: *HR* Heparin 5,000 UNIT/ML VIAL IVP ONE (15:46)
[2019-02-08] MEDS ORDERED: *HR* Heparin 5,000 UNIT/ML VIAL IVP PRN (15:46)
[2019-02-08] MEDS: Heparin 25,000 UNIT/250 ML D5W 25,000 UNIT/250 ML IV.SOLN IVC SCH (17:19)
[2019-02-08] MEDS: Insulin LISPRO 300 UNITS/3 ML VIAL SQ SCH ×2 (17:48→22:03)
[2019-02-08 19:38] LABS: Hematocrit 34.7 % (37.5-50.1); Hemoglobin 11.4 g/dL (12.9-16.9); Mean Corpuscular HGB Conc 32.9 g/dL (31.6-35.5); Mean Corpuscular Volume 85.3 fL (83.0-100.0); Mean Platelet Volume 10.5 fL (9.4-12.4); Platelet Count 209 K/mcL (140-400); Red Blood Count 4.07 M/mcL (4.19-5.50); White Blood Count 7.5 K/mcL (4.3-11.1)
[2019-02-08 19:46] LABS: INR 1.2; Prothrombin Time 13.9 Seconds (9.4-12.1)
[2019-02-08 20:09] LABS: Heparin anti-factor XA UFH 1.1 IU/mL (0.30-0.70)
[2019-02-09 03:54] LABS: Basophils # 0.1 K/mcL (0.0-0.2); Basophils % 0.5 %; Eosinophils # 0.2 K/mcL (0.0-0.6); Eosinophils % 1.9 %; Hematocrit 35.7 % (37.5-50.1); Hemoglobin 12.1 g/dL (12.9-16.9); Immature Granulocytes % 0.5 % (0-4); Lymphocytes # 2.6 K/mcL (0.6-4.6); Lymphocytes % 23.1 %; Mean Corpuscular HGB Conc 33.9 g/dL (31.6-35.5); Mean Corpuscular Hemoglobin 28.1 pg (28.0-33.3); Mean Platelet Volume 10.8 fL (9.4-12.4); Monocytes # 0.9 K/mcL (0.0-1.3); Monocytes % 8.1 %; Neutrophils # 7.3 K/mcL (1.6-8.9); Platelet Count 220 K/mcL (140-400); Red Cell Distribution Width 15.2 % (11.5-14.5); Segmented Neutrophils % 65.9 %
[2019-02-09] MEDS: *HR* Heparin 5,000 UNIT/ML VIAL IVP PRN ×2 (04:08→11:11)
[2019-02-09 04:13] LABS: BUN/Creatinine Ratio 19 (6-26); Blood Urea Nitrogen 23 mg/dL (8-23); Calcium 9.3 mg/dL (8.6-10.3); Carbon Dioxide 17 mEq/L (23-29); Chloride 102 mEq/L (98-107); Glucose 121 mg/dL (70-105); Osmolality,Calculated 285 (280-300); Phosphorous 4.2 mg/dL (2.7-4.5); Potassium 4.2 mEq/L (3.5-5.1); Sodium 135 mEq/L (136-145); eGFR For African Americans > 60 (> 60); eGFR For Non-African Americans 59 (> 60)
[2019-02-09 04:27] LABS: Thyroid Stimulating Hormone 1.966 mcIU/mL (0.340-5.600)
[2019-02-09] MEDS: Insulin LISPRO 300 UNITS/3 ML VIAL SQ SCH ×4 (07:39→20:13)
[2019-02-09 10:45] LABS: Hematocrit 34.5 % (37.5-50.1); Hemoglobin 11.8 g/dL (12.9-16.9); Mean Corpuscular HGB Conc 34.2 g/dL (31.6-35.5); Mean Corpuscular Hemoglobin 28.3 pg (28.0-33.3); Mean Corpuscular Volume 82.7 fL (83.0-100.0); Mean Platelet Volume 10.5 fL (9.4-12.4); Platelet Count 199 K/mcL (140-400); Red Blood Count 4.17 M/mcL (4.19-5.50); Red Cell Distribution Width 14.9 % (11.5-14.5); White Blood Count 7.6 K/mcL (4.3-11.1)
[2019-02-09 11:05] LABS: BUN/Creatinine Ratio 17 (6-26); Blood Urea Nitrogen 23 mg/dL (8-23); Calcium 9.2 mg/dL (8.6-10.3); Carbon Dioxide 23 mEq/L (23-29); Chloride 101 mEq/L (98-107); Glucose 184 mg/dL (70-105); Osmolality,Calculated 290 (280-300); Potassium 4.3 mEq/L (3.5-5.1); Sodium 136 mEq/L (136-145); eGFR For African Americans > 60 (> 60); eGFR For Non-African Americans 53 (> 60)
[2019-02-09] MEDS ORDERED: Haloperidol Lactate 5 MG/ML VIAL IVP PRN (16:08)
[2019-02-09] MEDS: Metoprolol XL (24 HR) Succ 50 MG TAB.ER.24H PO SCH (17:30)
[2019-02-09] MEDS ORDERED: Haloperidol Lactate 5 MG/ML VIAL IVP ONE ×2 (19:45→22:32)
[2019-02-09] MEDS: Apixaban 5 MG TABLET PO SCH (19:54)
[2019-02-10 04:17] LABS: Hematocrit 32.3 % (37.5-50.1); Hemoglobin 10.9 g/dL (12.9-16.9); Mean Corpuscular HGB Conc 33.7 g/dL (31.6-35.5); Mean Corpuscular Hemoglobin 27.7 pg (28.0-33.3); Mean Corpuscular Volume 82.2 fL (83.0-100.0); Platelet Count 205 K/mcL (140-400); Red Blood Count 3.93 M/mcL (4.19-5.50); White Blood Count 6.7 K/mcL (4.3-11.1)
[2019-02-10] MEDS: Insulin LISPRO 300 UNITS/3 ML VIAL SQ SCH ×4 (08:02→21:41)
[2019-02-10] MEDS: Aspirin 325 MG TABLET PO SCH (08:04)
[2019-02-10] MEDS: Apixaban 5 MG TABLET PO SCH ×2 (08:04→20:41)
[2019-02-10] MEDS ORDERED: 0.9 % Sodium Chloride 500 ML IVC ONE (09:47)
[2019-02-10] MEDS: Metoprolol XL (24 HR) Succ 50 MG TAB.ER.24H PO SCH (18:49)
[2019-02-11] MEDS: Heparin 25,000 UNIT/250 ML D5W 25,000 UNIT/250 ML IV.SOLN IVC SCH (06:41)
[2019-02-11] MEDS: Insulin LISPRO 300 UNITS/3 ML VIAL SQ SCH ×4 (08:18→21:35)
[2019-02-11] MEDS: Aspirin 325 MG TABLET PO SCH (08:24)
[2019-02-11] MEDS: Apixaban 5 MG TABLET PO SCH ×2 (08:24→21:35)
[2019-02-11 08:29] LABS: Hematocrit 35.4 % (37.5-50.1); Hemoglobin 11.3 g/dL (12.9-16.9); Mean Corpuscular HGB Conc 31.9 g/dL (31.6-35.5); Mean Corpuscular Hemoglobin 27.5 pg (28.0-33.3); Mean Corpuscular Volume 86.1 fL (83.0-100.0); Mean Platelet Volume 10.4 fL (9.4-12.4); Platelet Count 223 K/mcL (140-400); Red Blood Count 4.11 M/mcL (4.19-5.50); Red Cell Distribution Width 15.3 % (11.5-14.5)
[2019-02-11 08:30] LABS: White Blood Count 10.8 K/mcL (4.3-11.1)
[2019-02-11 08:47] LABS: BUN/Creatinine Ratio 18 (6-26); Blood Urea Nitrogen 21 mg/dL (8-23); Calcium 9.1 mg/dL (8.6-10.3); Carbon Dioxide 22 mEq/L (23-29); Chloride 104 mEq/L (98-107); Glucose 134 mg/dL (70-105); Osmolality,Calculated 287 (280-300); Sodium 136 mEq/L (136-145); eGFR For African Americans > 60 (> 60); eGFR For Non-African Americans > 60 (> 60)
[2019-02-12 02:28] LABS: Hematocrit 31.3 % (37.5-50.1); Hemoglobin 10.4 g/dL (12.9-16.9); Mean Corpuscular HGB Conc 33.2 g/dL (31.6-35.5); Mean Corpuscular Hemoglobin 28.6 pg (28.0-33.3); Mean Platelet Volume 11.1 fL (9.4-12.4); Platelet Count 211 K/mcL (140-400); Red Blood Count 3.64 M/mcL (4.19-5.50); Red Cell Distribution Width 15.4 % (11.5-14.5); White Blood Count 8.2 K/mcL (4.3-11.1)
[2019-02-12 02:45] LABS: BUN/Creatinine Ratio 20 (6-26); Blood Urea Nitrogen 25 mg/dL (8-23); Calcium 8.8 mg/dL (8.6-10.3); Carbon Dioxide 20 mEq/L (23-29); Chloride 106 mEq/L (98-107); Glucose 118 mg/dL (70-105); Osmolality,Calculated 285 (280-300); Potassium 4.2 mEq/L (3.5-5.1); Sodium 135 mEq/L (136-145); eGFR For African Americans > 60 (> 60); eGFR For Non-African Americans 58 (> 60)
[2019-02-12] MEDS: Insulin LISPRO 300 UNITS/3 ML VIAL SQ SCH ×4 (07:51→21:12)
[2019-02-12] MEDS: Apixaban 5 MG TABLET PO SCH ×2 (07:58→21:12)
[2019-02-12] MEDS: Aspirin 81 MG TAB.CHEW PO SCH (07:58)
[2019-02-12] MEDS ORDERED: Metoprolol 100 MG TABLET PO SCH (09:00)
[2019-02-12] MEDS ORDERED: Furosemide 40 MG/4 ML VIAL IVP ONE ×2 (09:12→16:30)
[2019-02-12] MEDS: Metoprolol 100 MG TABLET PO SCH (21:11)
[2019-02-13 01:33] LABS: Hematocrit 34.3 % (37.5-50.1); Hemoglobin 11.2 g/dL (12.9-16.9); Mean Corpuscular HGB Conc 32.7 g/dL (31.6-35.5); Mean Corpuscular Volume 85.8 fL (83.0-100.0); Platelet Count 232 K/mcL (140-400); Red Cell Distribution Width 15.1 % (11.5-14.5); White Blood Count 8.5 K/mcL (4.3-11.1)
[2019-02-13 03:14] LABS: Potassium 4.1 mEq/L (3.5-5.1)
[2019-02-13] MEDS ORDERED: Isovue-370 500 ML BOTTLE IVP ONE (09:00)
[2019-02-13] MEDS ORDERED: 0.9 % Sodium Chloride 250 ML IVC ONE (09:45)
[2019-02-13] MEDS: Insulin LISPRO 300 UNITS/3 ML VIAL SQ SCH ×2 (10:07→12:06)
[2019-02-13] MEDS: Apixaban 5 MG TABLET PO SCH (10:15)
[2019-02-13] MEDS: Metoprolol 100 MG TABLET PO SCH (10:15)
[2019-02-13] MEDS: Aspirin 81 MG TAB.CHEW PO SCH (10:16)
[2019-02-13 14:22] LABS: BUN/Creatinine Ratio 20 (6-26); Blood Urea Nitrogen 24 mg/dL (8-23); Calcium 8.7 mg/dL (8.6-10.3); Carbon Dioxide 18 mEq/L (23-29); Chloride 102 mEq/L (98-107); Glucose 204 mg/dL (70-105); Osmolality,Calculated 286 (280-300); Potassium 4.1 mEq/L (3.5-5.1); Sodium 133 mEq/L (136-145); eGFR For African Americans > 60 (> 60); eGFR For Non-African Americans 60 (> 60)
[2019-02-13 16:02] VITALS: BP 121/86
[2019-02-14] MEDS ORDERED: Diltiazem CD (24hr) 120 MG CAPSULE PO SCH (12:50)
== END 2019-02-13 18:21 | disposition home or self-care (01) | DRG 308 ==
LOC: 2NENU 11:53 → EMEROOARM 11:53 → SUATTDRO 16:07 → 2NENU 17:06 → SUATTDRO 02-09 17:44 → 2NENU 02-09 23:17
PROVIDERS: ADMIT Internal Medicine; ATTEND Family Medicine

== ENCOUNTER 2020-09-19 01:04 | Inpatient (IN) ==
[2020-09-19] MEDS ORDERED: Lidocaine Jelly 11 ml Syringe TP ONE (01:36)
[2020-09-19] MEDS ORDERED: *HR* FentaNYL (PF) 100 MCG/2 ML VIAL IVP ONE ×4 (02:29→13:21)
[2020-09-19 03:12] LABS: Basophils # 0.1 K/mcL (0.0-0.2); Basophils % 0.4 %; Eosinophils # 0.2 K/mcL (0.0-0.6); Eosinophils % 1.5 %; Hematocrit 34.6 % (37.5-50.1); Hemoglobin 11.6 g/dL (12.9-16.9); Immature Granulocytes % 0.7 % (0-4); Lymphocytes # 1.9 K/mcL (0.6-4.6); Lymphocytes % 12.6 %; Mean Corpuscular HGB Conc 33.5 g/dL (31.6-35.5); Mean Corpuscular Hemoglobin 29.4 pg (28.0-33.3); Mean Corpuscular Volume 87.6 fL (83.0-100.0); Mean Platelet Volume 9.9 fL (9.4-12.4); Monocytes % 7.1 %; Neutrophils # 11.5 K/mcL (1.6-8.9); Platelet Count 183 K/mcL (140-400); Red Blood Count 3.95 M/mcL (4.19-5.50); Segmented Neutrophils % 77.7 %; White Blood Count 14.7 K/mcL (4.3-11.1)
[2020-09-19 03:34] LABS: BUN/Creatinine Ratio 20 (6-26); Blood Urea Nitrogen 24 mg/dL (8-23); Calcium 9.4 mg/dL (8.6-10.3); Carbon Dioxide 20 mEq/L (23-29); Chloride 104 mEq/L (98-107); Glucose 210 mg/dL (70-105); Osmolality,Calculated 290 (280-300); Potassium 4.2 mEq/L (3.5-5.1); Sodium 135 mEq/L (136-145); eGFR For African Americans > 60 (> 60); eGFR For Non-African Americans 60 (> 60)
[2020-09-19] MEDS ORDERED: Melatonin 3 MG TABLET PO PRN ×2 (09:58→21:15)
[2020-09-19] MEDS ORDERED: *HR* OxyCODONE Immed Rel 5 MG TABLET PO PRN ×2 (09:58→21:15)
[2020-09-19] MEDS ORDERED: Acetaminophen 325 MG TABLET PO PRN ×2 (09:58→21:15)
[2020-09-19] MEDS ORDERED: Naloxone 0.4 MG/ML INJ IVP PRN ×2 (09:58→21:15)
[2020-09-19] MEDS ORDERED: Ondansetron 4 MG/2 ML VIAL IVP PRN ×3 (09:58→21:15)
[2020-09-19] MEDS ORDERED: Metoprolol 100 MG TABLET PO SCH (10:15)
[2020-09-19] MEDS ORDERED: DilTIAZem CD (24hr) 240 MG CAP.ER.24H PO SCH (10:15)
[2020-09-19 10:48] LABS: Hematocrit 33.5 % (37.5-50.1); Hemoglobin 11.3 g/dL (12.9-16.9)
[2020-09-19] MEDS ORDERED: Morphine Sulfate 2 MG/ML SYRINGE IVP ONE (11:46)
[2020-09-19] MEDS ORDERED: Morphine Sulfate 2 MG/ML SYRINGE IVP PRN (19:11)
[2020-09-19] MEDS ORDERED: Acetaminophen IV 1,000 MG/100 ML BAG IVPB ONE (19:14)
[2020-09-19] MEDS ORDERED: Famotidine 20 MG/2 ML VIAL ONE (19:14)
[2020-09-19] MEDS ORDERED: *HR* FentaNYL (PF) 100 MCG/2 ML VIAL ONE (19:23)
[2020-09-19] MEDS ORDERED: *HR* Propofol 200 MG/20 ML VIAL IVP ONE (19:23)
[2020-09-19] MEDS ORDERED: Lidocaine -MPF 2% 2 ML VIAL ONE (19:24)
[2020-09-19] MEDS ORDERED: EPHEDrine 50 MG/ML VIAL ONE (19:26)
[2020-09-19] MEDS ORDERED: *HR* Vasopressin 20 UNIT/ML VIAL ONE (19:35)
[2020-09-19] MEDS ORDERED: *HR* Belladonna Alkaloids/Opium 30 MG RECTAL SUPPOSITORY RC PRN (21:15)
[2020-09-20 06:45] LABS: Hematocrit 27.5 % (37.5-50.1); Mean Corpuscular HGB Conc 33.5 g/dL (31.6-35.5); Mean Corpuscular Hemoglobin 30.3 pg (28.0-33.3); Mean Corpuscular Volume 90.5 fL (83.0-100.0); Mean Platelet Volume 10.9 fL (9.4-12.4); Platelet Count 175 K/mcL (140-400); Red Blood Count 3.04 M/mcL (4.19-5.50); Red Cell Distribution Width 15.5 % (11.5-14.5); White Blood Count 16.8 K/mcL (4.3-11.1)
[2020-09-20 06:46] LABS: Hemoglobin 9.2 g/dL (12.9-16.9)
[2020-09-20 06:55] LABS: INR 1.4; Prothrombin Time 15.7 Seconds (9.4-12.1)
[2020-09-20 08:04] LABS: BUN/Creatinine Ratio 23 (6-26); Blood Urea Nitrogen 28 mg/dL (8-23); Calcium 8.3 mg/dL (8.6-10.3); Carbon Dioxide 22 mEq/L (23-29); Chloride 104 mEq/L (98-107); Glucose 164 mg/dL (70-105); Magnesium 1.6 mg/dL (1.6-2.6); Osmolality,Calculated 283 (280-300); Phosphorous 3.7 mg/dL (2.7-4.5); Potassium 3.8 mEq/L (3.5-5.1); Sodium 132 mEq/L (136-145); eGFR For African Americans > 60 (> 60); eGFR For Non-African Americans 58 (> 60)
[2020-09-20] MEDS ORDERED: Aspirin Enteric Coated 81 MG Tablet PO SCH (09:00)
[2020-09-20] MEDS: Metoprolol 100 MG TABLET PO SCH ×2 (09:50→20:46)
[2020-09-20] MEDS: DilTIAZem CD (24hr) 240 MG CAP.ER.24H PO SCH (09:51)
[2020-09-20] MEDS: Aspirin Enteric Coated 81 MG Tablet PO SCH (09:51)
[2020-09-20] MEDS: 0.9 % Sodium Chloride 1,000 ML IVC SCH ×2 (09:52→20:50)
[2020-09-20 15:41] LABS: Hematocrit 25.5 % (37.5-50.1); Hemoglobin 8.4 g/dL (12.9-16.9)
[2020-09-20] MEDS ORDERED: Ampicillin/Sulbactam 1,500 MG in 0.9 % Sodium Chloride Mini Bag 100 ML IVPB SCH (18:00)
[2020-09-21 02:13] LABS: Hematocrit 24.3 % (37.5-50.1); Hemoglobin 8.2 g/dL (12.9-16.9); Mean Corpuscular HGB Conc 33.7 g/dL (31.6-35.5); Mean Corpuscular Hemoglobin 30.3 pg (28.0-33.3); Mean Corpuscular Volume 89.7 fL (83.0-100.0); Mean Platelet Volume 10.6 fL (9.4-12.4); Platelet Count 168 K/mcL (140-400); Red Blood Count 2.71 M/mcL (4.19-5.50); Red Cell Distribution Width 15.6 % (11.5-14.5); White Blood Count 11.2 K/mcL (4.3-11.1)
[2020-09-21 02:37] LABS: BUN/Creatinine Ratio 23 (6-26); Blood Urea Nitrogen 26 mg/dL (8-23); Carbon Dioxide 21 mEq/L (23-29); Chloride 104 mEq/L (98-107); Glucose 172 mg/dL (70-105); Osmolality,Calculated 285 (280-300); Potassium 3.9 mEq/L (3.5-5.1); Sodium 133 mEq/L (136-145); eGFR For African Americans > 60 (> 60); eGFR For Non-African Americans > 60 (> 60)
[2020-09-21 02:46] LABS: Bilirubin,Urine Negative (Negative); Blood,Urine Large (Negative); Clarity,Urine Turbid (Clear); Color,Urine Light-Yellow (Yellow); Glucose,Urine (UA) 30 mg/dL (Normal); Ketones,Urine Negative (Negative); Leukocyte Esterase,Urine Large (Negative); Mucus,Urine Few per lpf (None-Few); Nitrite,Urine Negative (Negative); Protein,Urine 100 mg/dL (Neg-Trace); RBC,Urine 15-30 per hpf (0-3); Squamous Epithelial Cell,Urine Few per hpf (None-Few); Urobilinogen,Urine Normal (Normal); WBC,Urine 50-100 per hpf (0-3)
[2020-09-21] MEDS ORDERED: Ampicillin/Sulbactam 1,500 MG in 0.9 % Sodium Chloride Mini Bag 100 ML IVPB SCH (08:00)
[2020-09-21] MEDS: Metoprolol 100 MG TABLET PO SCH (09:25)
[2020-09-21] MEDS: Aspirin Enteric Coated 81 MG Tablet PO SCH (09:25)
[2020-09-21] MEDS: DilTIAZem CD (24hr) 240 MG CAP.ER.24H PO SCH (09:25)
[2020-09-21 10:50] VITALS: BP 117/73; PULSE 109; TEMP 98.6; O2SAT 95
== END 2020-09-21 13:17 | disposition home or self-care (01) | DRG 668 ==
LOC: CDU 01:04 → EMEROOARM 01:04 → CDU 08:52 → 3ANU 20:47 → SUATTDRO 21:00
PROVIDERS: ADMIT Internal Medicine; ATTEND General Practice

== ENCOUNTER 2021-04-18 14:53 | Inpatient (IN) ==
[2021-04-18] MEDS ORDERED: 0.9 % Sodium Chloride 1,000 ML IVC ONE ×2 (16:12→17:55)
[2021-04-18 16:21] LABS: Basophils # 0.1 K/mcL (0.0-0.2); Basophils % 0.5 %; Eosinophils # 0.1 K/mcL (0.0-0.6); Hematocrit 39.3 % (37.5-50.1); Hemoglobin 13.4 g/dL (12.9-16.9); Immature Granulocytes % 0.9 % (0-4); Lymphocytes # 1.6 K/mcL (0.6-4.6); Lymphocytes % 15.8 %; Mean Corpuscular HGB Conc 34.1 g/dL (31.6-35.5); Mean Corpuscular Hemoglobin 29.1 pg (28.0-33.3); Mean Corpuscular Volume 85.2 fL (83.0-100.0); Mean Platelet Volume 10.4 fL (9.4-12.4); Monocytes # 1.1 K/mcL (0.0-1.3); Monocytes % 10.6 %; Neutrophils # 7.4 K/mcL (1.6-8.9); Platelet Count 188 K/mcL (140-400); Red Blood Count 4.61 M/mcL (4.19-5.50); Red Cell Distribution Width 15.6 % (11.5-14.5); Segmented Neutrophils % 71.2 %; White Blood Count 10.4 K/mcL (4.3-11.1)
[2021-04-18 16:30] LABS: BUN/Creatinine Ratio 18 (6-26); Blood Urea Nitrogen 19 mg/dL (8-23); Calcium 9.4 mg/dL (8.6-10.3); Carbon Dioxide 20 mEq/L (23-29); Chloride 102 mEq/L (98-107); Glucose 218 mg/dL (70-105); Osmolality,Calculated 287 (280-300); Potassium 4.1 mEq/L (3.5-5.1); Sodium 134 mEq/L (136-145); Troponin I < 0.03 ng/mL (< 0.04); eGFR For African Americans > 60 (> 60); eGFR For Non-African Americans > 60 (> 60)
[2021-04-18] MEDS ORDERED: *HR* Metoprolol 5 MG/5 ML VIAL IVP ONE (16:58)
[2021-04-18 16:59] LABS: INR 1.1; Prothrombin Time 12.1 Seconds (9.4-12.1)
[2021-04-18 17:01] LABS: Activated Partial Thrombo Time 27.1 Seconds (26.0-36.0)
[2021-04-18 18:09] LABS: Alanine Aminotransferase 14 Units/L (7-52); Albumin 4.1 g/dL (3.5-5.7); Albumin/Globulin Ratio 1.2 (1.1-2.2); Alkaline Phosphatase 109 Units/L (34-104); Aspartate Amino Transferase 12 Units/L (13-39); Bilirubin,Direct 0.1 mg/dL (0.0-0.2); Bilirubin,Indirect 0.6 mg/dL (0.0-1.0); Bilirubin,Total 0.7 mg/dL (0.3-1.0); Globulin 3.3 g/dL (2.4-3.5); Total Protein 7.4 g/dL (6.4-8.9)
[2021-04-18 18:18] LABS: Bilirubin,Urine Negative (Negative); Blood,Urine Moderate (Negative); Clarity,Urine Turbid (Clear); Color,Urine Yellow (Yellow); Glucose,Urine (UA) >=1000 mg/dL (Normal); Ketones,Urine Trace mg/dL (Negative); Leukocyte Esterase,Urine Small (Negative); Nitrite,Urine Negative (Negative); PH,Urine 6.5 pH Units (5.0-8.0); Protein,Urine >=300 mg/dL (Neg-Trace); RBC,Urine TNTC per hpf (0-3); Specific Gravity,Urine 1.026 (1.010-1.025); Squamous Epithelial Cell,Urine Few per hpf (None-Few); Urobilinogen,Urine Normal (Normal); WBC,Urine TNTC per hpf (0-3)
[2021-04-18] MEDS: *HR* Metoprolol 5 MG/5 ML VIAL IVP ONE ×2 (18:23→18:54)
[2021-04-18] MEDS ORDERED: DilTIAZem 50 MG/50 ML IV.SOLN IVC SCH (20:30)
[2021-04-18] MEDS ORDERED: Ampicillin/Sulbactam 3,000 MG in 0.9 % Sodium Chloride Mini Bag 100 ML IVPB ONE (21:49)
[2021-04-18] MEDS ORDERED: Naloxone 0.4 MG/ML INJ IVP PRN (22:15)
[2021-04-18] MEDS ORDERED: Ondansetron 4 MG/2 ML VIAL IVP PRN (22:15)
[2021-04-18] MEDS ORDERED: *HR* Dextrose 50 % in Water (Syg) 50 ML SYRINGE IVP PRN (23:51)
[2021-04-18] MEDS ORDERED: D5% in Water 1,000 ML IVC PRN (23:51)
[2021-04-18] MEDS ORDERED: Dextrose Gel 15 GM/37.5 ML TUBE PO PRN ×2 (23:51)
[2021-04-19] MEDS: Ampicillin/Sulbactam 3,000 MG in 0.9 % Sodium Chloride Mini Bag 100 ML IVPB SCH ×4 (00:55→17:46)
[2021-04-19] MEDS: Insulin LISPRO 300 UNITS/3 ML VIAL SUBQ SCH ×4 (00:56→17:44)
[2021-04-19 02:58] LABS: Basophils # 0.1 K/mcL (0.0-0.2); Basophils % 0.6 %; Eosinophils # 0.2 K/mcL (0.0-0.6); Eosinophils % 2.6 %; Hemoglobin 12.3 g/dL (12.9-16.9); Immature Granulocytes % 0.7 % (0-4); Lymphocytes % 23.7 %; Mean Corpuscular HGB Conc 34.2 g/dL (31.6-35.5); Mean Corpuscular Hemoglobin 29.6 pg (28.0-33.3); Mean Corpuscular Volume 86.5 fL (83.0-100.0); Mean Platelet Volume 10.1 fL (9.4-12.4); Monocytes # 0.8 K/mcL (0.0-1.3); Monocytes % 9.5 %; Neutrophils # 5.4 K/mcL (1.6-8.9); Platelet Count 162 K/mcL (140-400); Red Blood Count 4.16 M/mcL (4.19-5.50); Red Cell Distribution Width 15.6 % (11.5-14.5); Segmented Neutrophils % 62.9 %; White Blood Count 8.6 K/mcL (4.3-11.1)
[2021-04-19 03:17] LABS: BUN/Creatinine Ratio 14 (6-26); Blood Urea Nitrogen 15 mg/dL (8-23); Calcium 8.7 mg/dL (8.6-10.3); Carbon Dioxide 22 mEq/L (23-29); Chloride 103 mEq/L (98-107); Glucose 236 mg/dL (70-105); Magnesium 1.6 mg/dL (1.6-2.6); Osmolality,Calculated 288 (280-300); Potassium 3.7 mEq/L (3.5-5.1); Sodium 135 mEq/L (136-145); eGFR For African Americans > 60 (> 60); eGFR For Non-African Americans > 60 (> 60)
[2021-04-19 03:29] LABS: Thyroid Stimulating Hormone 0.727 mcIU/mL (0.340-5.600)
[2021-04-19] MEDS ORDERED: Perflutren Lipid Microsphere 1.3 ML in 0.9 % Sodium Chloride 8.7 ML IVP PRN (07:51)
[2021-04-19] MEDS: Aspirin Enteric Coated 81 MG Tablet PO SCH (08:09)
[2021-04-19] MEDS: Apixaban 5 MG TABLET PO SCH ×2 (08:09→21:52)
[2021-04-19] MEDS: Metoprolol 100 MG TABLET PO SCH ×2 (08:09→21:52)
[2021-04-19] MEDS ORDERED: DilTIAZem CD (24hr) 240 MG CAP.ER.24H PO SCH (09:00)
[2021-04-19] MEDS ORDERED: *HR* Glimepiride 2 MG TABLET PO SCH (09:00)
[2021-04-19] MEDS ORDERED: DilTIAZem CD (24hr) 120 MG CAP.ER.24H PO ONE (12:57)
[2021-04-20] MEDS: Ampicillin/Sulbactam 3,000 MG in 0.9 % Sodium Chloride Mini Bag 100 ML IVPB SCH ×4 (00:19→17:14)
[2021-04-20] MEDS: Apixaban 5 MG TABLET PO SCH (08:59)
[2021-04-20] MEDS: Aspirin Enteric Coated 81 MG Tablet PO SCH (08:59)
[2021-04-20] MEDS: Metoprolol 100 MG TABLET PO SCH ×2 (09:00→22:37)
[2021-04-20] MEDS ORDERED: DilTIAZem CD (24hr) 180 MG CAP.ER.24H PO SCH (09:00)
[2021-04-20] MEDS: Insulin LISPRO 300 UNITS/3 ML VIAL SUBQ SCH ×3 (09:01→17:11)
[2021-04-20] MEDS ORDERED: DilTIAZem CD (24hr) 120 MG CAP.ER.24H PO ONE (11:43)
[2021-04-21] MEDS: Ampicillin/Sulbactam 3,000 MG in 0.9 % Sodium Chloride Mini Bag 100 ML IVPB SCH ×2 (00:51→05:41)
[2021-04-21] MEDS ORDERED: Ringers Solution, Lactated 1,000 ML IVC ONE (06:00)
[2021-04-21] MEDS ORDERED: Lidocaine -MPF 2% 5 ML VIAL ONE (07:20)
[2021-04-21] MEDS ORDERED: *HR* Propofol 200 MG/20 ML VIAL IVP ONE (07:20)
[2021-04-21] MEDS ORDERED: *HR* FentaNYL (PF) 100 MCG/2 ML VIAL ONE (07:20)
[2021-04-21] MEDS ORDERED: Ondansetron 4 MG/2 ML VIAL ONE (07:22)
[2021-04-21 07:32] LABS: Basophils # 0.1 K/mcL (0.0-0.2); Basophils % 0.7 %; Eosinophils # 0.3 K/mcL (0.0-0.6); Eosinophils % 3.9 %; Hematocrit 36.2 % (37.5-50.1); Hemoglobin 12.3 g/dL (12.9-16.9); Lymphocytes # 1.7 K/mcL (0.6-4.6); Lymphocytes % 20.6 %; Mean Corpuscular Hemoglobin 29.9 pg (28.0-33.3); Mean Corpuscular Volume 87.9 fL (83.0-100.0); Mean Platelet Volume 10.2 fL (9.4-12.4); Monocytes # 0.9 K/mcL (0.0-1.3); Monocytes % 10.7 %; Neutrophils # 5.2 K/mcL (1.6-8.9); Platelet Count 166 K/mcL (140-400); Red Blood Count 4.12 M/mcL (4.19-5.50); Red Cell Distribution Width 15.8 % (11.5-14.5); Segmented Neutrophils % 63.1 %; White Blood Count 8.3 K/mcL (4.3-11.1)
[2021-04-21] MEDS ORDERED: Nitroglycerin 0.4 MG TAB.SUBL SL PRN (07:44)
[2021-04-21] MEDS ORDERED: *HR* Labetalol 20 MG/4 ML SYRINGE IVP PRN (07:44)
[2021-04-21] MEDS ORDERED: *HR* FentaNYL (PF) 100 MCG/2 ML VIAL IVP PRN (07:44)
[2021-04-21] MEDS ORDERED: Albuterol 2.5 MG/3 ML NEBULIZER IH PRN (07:44)
[2021-04-21] MEDS ORDERED: Naloxone 0.4 MG/ML INJ IVP PRN ×2 (07:44→09:06)
[2021-04-21] MEDS ORDERED: Ondansetron 4 MG/2 ML VIAL IVP PRN ×2 (07:44→09:06)
[2021-04-21] MEDS ORDERED: Acetaminophen IV 1,000 MG/100 ML BAG IVPB ONE ×2 (07:46→08:11)
[2021-04-21 07:50] LABS: BUN/Creatinine Ratio 14 (6-26); Blood Urea Nitrogen 15 mg/dL (8-23); Calcium 8.6 mg/dL (8.6-10.3); Carbon Dioxide 23 mEq/L (23-29); Chloride 101 mEq/L (98-107); Glucose 166 mg/dL (70-105); Magnesium 1.7 mg/dL (1.6-2.6); Osmolality,Calculated 281 (280-300); Phosphorous 3.6 mg/dL (2.7-4.5); Potassium 3.9 mEq/L (3.5-5.1); Sodium 133 mEq/L (136-145); eGFR For African Americans > 60 (> 60); eGFR For Non-African Americans > 60 (> 60)
[2021-04-21] MEDS ORDERED: D5% in Water 1,000 ML IVC PRN (09:06)
[2021-04-21] MEDS ORDERED: Dextrose Gel 15 GM/37.5 ML TUBE PO PRN ×2 (09:06)
[2021-04-21] MEDS ORDERED: *HR* Dextrose 50 % in Water (Syg) 50 ML SYRINGE IVP PRN (09:06)
[2021-04-21] MEDS ORDERED: Perflutren Lipid Microsphere 1.3 ML in 0.9 % Sodium Chloride 8.7 ML IVP PRN (09:06)
[2021-04-21] MEDS ORDERED: DilTIAZem CD (24hr) 180 MG CAP.ER.24H PO SCH (09:25)
[2021-04-21] MEDS ORDERED: Metoprolol 100 MG TABLET PO SCH ×2 (09:30→21:00)
[2021-04-21 10:47] VITALS: PULSE 81
[2021-04-21 11:26] VITALS: BP 105/65; TEMP 97.9; O2SAT 95
[2021-04-21] MEDS ORDERED: Insulin LISPRO 300 UNITS/3 ML VIAL SUBQ SCH (11:30)
[2021-04-21] MEDS ORDERED: Ampicillin/Sulbactam 3,000 MG in 0.9 % Sodium Chloride Mini Bag 100 ML IVPB SCH (12:00)
[2021-04-22] MEDS ORDERED: DilTIAZem CD (24hr) 180 MG CAP.ER.24H PO SCH (09:00)
[2021-04-22] MEDS ORDERED: Aspirin Enteric Coated 81 MG Tablet PO SCH (09:00)
== END 2021-04-21 14:47 | disposition home or self-care (01) | DRG 309 ==
LOC: EMEROOARM 14:53 → 3BNU 14:53 → SUATTDRO 22:36 → 3BNU 22:40
PROVIDERS: ADMIT Student in an Organized Health Care Education/Training Program; ATTEND Internal Medicine